=== PATIENT | female | born 1985 | race Caucasian/White ===

== ENCOUNTER 2021-08-13 22:54 | Emergency (ER) | payer OTHER ==
[2021-08-13 23:39] VITALS: BP 110/65; PULSE 79; TEMP 97.6; BMI 27.8
[2021-08-14] MEDS ORDERED: ACETAMINOPHEN 500 MG TABLET (FP) PO ONE (00:02)
[2021-08-14 00:20] LABS: HCG,QUALITATIVE URINE Negative
[2021-08-14 00:23] LABS: EPI CELLS 15 /uL (0-25.1); HYALINE CASTS 1 /uL (0-3.1); PH,URINE 5.5 (5.0-8.0); URINE APPEARANCE CLEAR; URINE BACTERIA 164 /uL (0-1359); URINE BILIRUBIN NEGATIVE (NEGATIVE); URINE COLOR YELLOW; URINE GLUCOSE (UA) NEGATIVE (NEGATIVE); URINE KETONE TRACE (NEGATIVE); URINE LEUK ESTERASE NEGATIVE (NEGATIVE); URINE NITRITE NEGATIVE (NEGATIVE); URINE PROTEIN 1+ (NEGATIVE); URINE RBC 6 /uL (0-23.9); URINE WBC 40 /uL (0-25.8)
[2021-08-14] MEDS ORDERED: ACETAMINOPHEN 500 MG TABLET (FP) ONE (00:23)
== END 2021-08-14 00:46 | disposition home or self-care (01) ==
LOC: JER 22:54
DX: M25.552 Pain in left hip (principal); W10.9XXA Fall (on) (from) unspecified stairs and steps, initial encounter
CPT/HCPCS: 73502-TC-LT-FY; 81003; 84703; 99284-25

== ENCOUNTER → 2023-05-20 | Day surgery (SDC) | payer OTHER ==
[2023-05-19 16:32] VITALS: BMI 30.9
[~2023-05-20] MED LIST: BUPIVACAINE HCL 0.5% 250 MG/50 ML VIAL NR ONE; BUPIVACAINE HCL/PF 0.5% (5MG/ML) 10 ML VIAL ONE; DEXAMETHASONE SOD PHOSPHATE 4 MG/1 ML VIAL ONE; FENTANYL CITRATE/PF 50 MCG/ML VIAL ONE; LACTATED RINGERS SOLUTION 1,000 ML IV SCH; MIDAZOLAM HCL 2 MG/2 ML SINGLE DOSE VIAL ONE; ONDANSETRON 4 MG/2 ML VIAL IVPUSH PRN; ONDANSETRON 4 MG/2 ML VIAL ONE; PROPOFOL 20 ML ONE; ceFAZolin SODIUM 1 GM VIAL IVPB ONE; ceFAZolin SODIUM 1 GM VIAL ONE; oxyCODONE HCL 5 MG TABLET ONE; oxyCODONE HCL 5 MG TABLET PO ONE; oxyCODONE HCL 5 MG TABLET PO PRN
[2023-05-20 12:32] VITALS: TEMP 97.3
[2023-05-20 13:48] VITALS: BP 116/73; PULSE 64; RESP 16
== END | disposition home or self-care (01) ==
LOC: JASU-SURG 04:06
PROVIDERS: ATTEND Orthopaedic Surgery
PROC: 0SBD4ZZ Excision of Left Knee Joint, Percutaneous Endoscopic Approach (ICD-10-PCS; principal; 2023-05-20 11:00)
DX: M17.12 Unilateral primary osteoarthritis, left knee (principal); M23.252 Derangement of posterior horn of lateral meniscus due to old tear or injury, left knee; M65.862 Other synovitis and tenosynovitis, left lower leg
CPT/HCPCS: 81025; 94760